=== PATIENT | female | born 1950 | race Asian ===

== ENCOUNTER 2022-02-16 14:02 | Outpatient (CLI) | payer MEDICARE | END 2022-02-16 14:03 | disposition home or self-care (01) | LOC: CSHMAMMO 14:02 | PROVIDERS: ATTEND Family Medicine | DX: Z12.31 Encounter for screening mammogram for malignant neoplasm of breast (principal) | CPT/HCPCS: 77063; 77067 ==

== ENCOUNTER 2022-02-22 14:36 | Outpatient (CLI) | payer MEDICARE | END 2022-02-22 14:37 | disposition home or self-care (01) | LOC: CSHMAMMO 14:36 | PROVIDERS: ATTEND Family Medicine | DX: M81.0 Age-related osteoporosis without current pathological fracture (principal); M85.851 Other specified disorders of bone density and structure, right thigh | CPT/HCPCS: 77080 ==

== ENCOUNTER 2022-09-17 12:49 | Outpatient (CLI) | payer MEDICARE | END 2022-09-17 12:50 | disposition home or self-care (01) | LOC: CSHRAD 12:49 | PROVIDERS: ATTEND Internal Medicine Rheumatology | DX: M25.531 Pain in right wrist (principal); M46.1 Sacroiliitis, not elsewhere classified; M81.0 Age-related osteoporosis without current pathological fracture; M19.031 Primary osteoarthritis, right wrist; M47.814 Spondylosis without myelopathy or radiculopathy, thoracic region | CPT/HCPCS: 72072; 72202 ==